=== PATIENT | male | born 2005 | race Caucasian/White ===

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

== ENCOUNTER 2025-08-13 11:11 | Emergency (ER) | payer OTHER, SELFPAY ==
--- OUTSIDE RECORDS SUMMARY | 2025-08-13 11:13 | XMS_ITS | Clinical Summary ---
Author Organization 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 Gender Identity Not on file Sexual Orientation Not on file Plan of Treatment Health Maintenance Due Date Last Done Comments Hepatitis C Virus (HCV) Screening 2005 Human Papillomavirus (HPV) Immunization (1 - Male 3-dose series) 2020 Meningococcal B Immunization (1 of 2 - Standard) 2021 Hepatitis B Immunization (1 of 3 - 19+ 3-dose series) 2024 Influenza Immunization (#1) 2025 SARS-COV-2 Immunization (1 - season) 2025 Respiratory Syncytial Virus (RSV) Immunization (Adult) (1 - 1-dose 75+ series) 2080 DTaP/Tdap/Td Immunization Discontinued 03/09/2017 Meningococcal Immunization (ACWY) Aged Out 017 No longer eligible based on patient's age to complete this topic TdaP Immunization Completed 03/09/2017 Pneumococcal Immunization Combined Aged Out No longer eligible based on patient's age to complete this topic Rotavirus Immunization Aged Out No lo nger eligible based on patient's age to complete this topic
--- OUTSIDE RECORDS SUMMARY | 2025-08-13 11:13 | XMS_ITS | Clinical Summary ---
Author Organization [facility] Address [address] [place] [address] Phone Care Team Providers Care Antenna Design Engineer Name Role Phone Lakeisha Ho MD Primary Care Provider [phone] Allergies No known active allergies Medications guanFACINE (TENEX) 1 mg tablet Take 0.5 Tablet (0.5 mg) by mouth daily at bedtime After one week take half a tab twice a day. 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 Gender Identity Not on file Sexual Orientation Not on file Last Filed Vital Signs Vital Sign Reading Time Taken Comments Blood Pressure 100/64 11/14/2015 3:53 PM CDT Pulse - - Temperature - - Respiratory Rate - - Oxygen Saturation - - Inhaled Oxygen Concentration - - Weight 37.5 kg (82 lb 10.8 oz) 11/14/2015 3:53 P M CDT Height 150 cm (4' 11.06) 11/14/2015 3:53 PM CDT Body Mass Index 16.67 11/14/2015 3:53 PM CDT Plan of Treatment Health Maintenance Due Date Last Done Comments CHLAMYDIA SCREENING (ANNUAL) 11-24 YEARS 2016 HPV VACCINES (1 - Male 3-dose series) 2020 DTAP/TDAP/TD VACCINES (1 - Tdap) 2024 HEPATITIS B VACCINES (1 of 3 - 19+ 3-dose series) 04/24 INFLUENZA VACCINE (#1) [id number] [employer] PPO [id number] [employer] P[place] [id number] Care Teams Antenna Design Engineer Relationship Specialty Start Date End Date Lakeisha Ho MD PCP - General Pediatrics 10/30/15
[2025-08-13 11:58] VITALS: BP 123/63; PULSE 66; RESP 18; TEMP 36.3; O2SAT 99
--- NOTE | 2025-08-13 12:10 | ED_ITS ---
HPI - Skin/Abscess/Foreign Bdy General Chief complaint: Skin/Abscess/Foreign Body Stated complaint: ring worm Patient presents to the [facility] with complaints of slightly itchy rash to buttocks no began about 4 days ago. Patient reports using [id number] antifungal cream to the area last night with no relief of symptoms yet. Patient believes he has ringworm. denies fever, chills, body aches, significant pain to the area or drainage from the rash area. Patient does also report significant other recently tested positive for strep and has slightly scratchy throat no other symptoms noted Related Data Allergies Allergy/AdvReac Type Severity Reaction Status Date / Time No Known Allergies Allergy Mild Verified 08/13/25 12:05 Review of Systems Constitutional: Constitutional: Reports as per HPI, Denies chills, Denies fatigue, Denies fever(s) and Denies weakness Eyes: Eyes: Reports no additional eye complaints ENT: Reports as per HPI, Denies vertigo, Denies dizziness, Denies nasal congestion and Denies sore throat ( slightly scratchy) Cardiovascular: Cardiovascular: Reports no additional cardiovascular complaints Respiratory: Respiratory: Reports as per HPI, Denies chest congestion, Denies cough, Denies dyspnea and Denies wheezing Gastrointestinal: Gastrointestinal: Reports no additional gastrointestinal complaints Genitourinary: Genitourinary: Reports no additional male genitourinary complaints Musculoskeletal: Musculoskeletal: Reports no additional musculoskeletal complaints Integumentary/Breasts: Skin/Breast: Reports as per HPI, Reports pruritus, Reports rash and Denies skin ulcer Neurologic: Reports as per HPI, Denies numbness and Denies weakness Psychiatric: Psychiatric: Reports no additional psychiatric complaints Endocrine: Endocrine: Reports no additional endocrine complaints Hematologic/Lymphatic: Hematologic/Lymphatic: Reports no additional hematologic/lymphatic complaints Allergic/Immunologic: Allergic/Immunologic: Reports as per HPI, Denies lip swelling, Denies throat swelling, Denies tongue swelling and Denies wheezing PMF Past Medical History Medical History (Updated 08/13/25 @ 12:12 by Magali Zuñiga APRN, ORDER PROCESSOR-C) Acute appendicitis, uncomplicated Pilonidal cyst Anxiety Surgical History Surgical History (Updated 09/11/23 @ 14:53 by MARTI Overton) History of laparoscopic appendectomy Family History Family History Mother Breast cancer Unknown No problems noted. Grandparent Cerebrovascular accident Grandparent Hypertension Social History Social History Smoking status: Never smoker Alcohol intake: current Drinks per week: 2 Substance use: never Lack of Transportation: No Lack of Food: Never True Current Housing: I Have Housing Concerned About Future Housing: No Difficulty Paying Gas/Electric Bills: No Difficulty Paying for Meds: No Currently Unemployed: No Education: Grade School Difficulty w/ Childcare or Family Care: No Spiritual care concerns: No Exam Const: General: healthy appearing and no acute distress Nutritional Appearance: well nourished Orientation/consciousness: patient oriented x3 Limitations: no limitations HENMT: Mouth: Yes Normal oral and palatal mucosa present, Yes lip normal and Yes moist mucous membranes Throat: posterior oropharynx normal Neck: Neck: normal visual inspection and no lymphadenopathy Resp: Effort & Inspection: normal respiratory effort Auscultation: clear to auscultation bilaterally Cardio: Rate: regular rate Rhythm: regular rhythm Skin: General skin exam: normal color Rashes: rash noted Wounds: no wounds Other: minimal circular plaque-like rash with central clearing. Noted to buttocks Neuro: General: patient oriented x3 and moves all extremities Speech: normal speech Gait exam (Neuro): Normal gait present Extrem: General: normal to inspection and no clubbing, cyanosis or edema Psych: Mental Status: mental status grossly normal Affect: normal affect Attitude: cooperative Course Course Level of Care: Express Care Visit Vital Signs Vital signs: Vital Signs Temperature 97.3 F L 08/13/25 11:58 Pulse Rate 66 08/13/25 11:58 Respiratory Rate 18 08/13/25 11:58 Blood Pressure 123/63 08/13/25 11:58 Pulse Oximetry 99 08/13/25 11:58 Oxygen Delivery Room Air 08/13/25 11:58 Temperature 97.3 F L 08/13/25 11:58 Pulse Rate 66 08/13/25 11:58 Respiratory Rate 18 08/13/25 11:58 Blood Pressure 123/63 08/13/25 11:58 Pulse Oximetry 99 08/13/25 11:58 Oxygen Delivery Room Air 08/13/25 11:58 MDM MDM Narrative Medical decision making narrative: On exam appears to be ringworm in nature. strep swab due to positive significant other with strep negative in clinic will send culture The patient was evaluated by myself in the [facility] care. History is obtained from patient who is an independent historian and physical exam was performed. Available medical records were reviewed at this time. Exam findings show no acute concerns or changes; patient is non-toxic appearing and is in no distress. Patient is appropriate for outpatient treatment and follow-up. I have evaluated and discussed social determinants of health with the patient that could potentially impact subsequent diagnosis and treatment plans. Differential diagnosis and treatment plan were discussed with the patient. Patient agrees with discussion and after shared medical decision making agrees with plan of care. All questions were answered to the patient's satisfaction. Differential Diagnosis Differential Diagnosis: ringworm, cellulitis, impetigo Medical Records I have reviewed the following patient records and this information was taken into consideration when formulating the assessment and plan.: previous labs, previous ER visits, previous hospitalizations and previous clinic visits Discharge Plan Discharge Clinical Impression: Yeast infection of the skin Patient Disposition: Home Condition: Stable Instructions: Antibiotic Form, Skin Yeast Infection (ED) Additional Instructions: keep skin to the area as dry as possible. Ensure when you are done at the gym to take a shower and clean the area. use a topical medication 3 times daily until rash is completely resolved then use for another 24 hours. Follow-up with primary care physician if symptoms not improved in 2-3 weeks. Patient Language: [place] Prescriptions: New nystatin 100,000 unit/gram cream 1 applic topical TID PRN (Reason: rash) Qty: 30 1RF Follow-up/Referrals: UNKNOWN,DOCTOR [Primary Care Provider] Time of Disposition: 12:12
[2025-08-13 12:29] LABS: EDSTREPNEGPOS1 Negative (Negative)
== END 2025-08-13 12:15 | disposition home or self-care (01) ==
PROVIDERS: Emergency Provider Nurse Practitioner Family
DX: B37.2 Candidiasis of skin and nail (principal)
CPT/HCPCS: 87081; 87880; 99213; G0463